=== PATIENT | female | born 2000 | race Caucasian/White ===

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

== ENCOUNTER 2020-01-02 15:29 | Outpatient (REF) | payer OTHER, SELFPAY ==
[2020-01-02 20:55] LABS: Absolute Basophil Count 0.05 10^3/uL (0.0-0.2); Absolute Eosinophil Count 0.28 10^3/uL (0.0-0.7); Absolute Lymphocyte Count 1.76 10^3/uL (1.2-3.4); Absolute Monocyte Count 0.43 10^3/uL (0.1-0.8); Absolute Neutrophil Count 2.63 10^3/uL (1.2-6.7); Eosinophils % 5.4; HCT 39.9 % (36.0-46.0); HGB 13.5 g/dL (11.2-15.7); Lymphocytes % 34.2; MCHC 33.8 % (32.0-36.0); MCV 91.5 fL (80-95); Monocytes % 8.3; Neutrophils % 51.1; Nucleated RBC 0 %; Platelet Count 217 10^3/uL (130-400); RBC 4.36 10^6/uL (3.93-5.22); RDW 11.7 % (11.7-14.6); RDW-SD 39.5 fL; WBC 5.15 10^3/uL (4.4-10.8)
[2020-01-02 20:58] LABS: HCG Qual (Serum) Negative
[2020-01-02 21:33] LABS: ALT 15 U/L (14-59); AST 13 U/L (15-37); Albumin 3.6 g/dL (3.4-5.0); Alkaline Phosphatase 59 U/L (46-116); BUN 6 mg/dL (7-18); Bilirubin, Total 0.5 mg/dL (0.2-1.0); CREATININE 0.96 mg/dL (0.55-1.02); Calcium 9.4 mg/dL (8.5-10.1); Chloride 108 mmol/L (98-107); Glucose 66 mg/dL (74-106); Magnesium 2.3 mg/dL (1.8-2.4); PHOSPHORUS 2.8 mg/dL (2.6-4.7); Potassium 4.4 mmol/L (3.5-5.1); Sodium 142 mmol/L (136-145); Total Protein 6.6 g/dL (6.4-8.2)
== END 2020-01-02 15:49 ==
LOC: NCHCN 15:29
PROVIDERS: PCP Family Medicine; Referring Provider Nurse Practitioner Family; Visit Provider Nurse Practitioner Psychiatric/Mental Health
DX: F50.89 Other specified eating disorder (principal)
CPT/HCPCS: 80053; 83735; 84100; 84703; 85025

== ENCOUNTER 2020-01-13 13:30 | Outpatient (REF) | payer OTHER, SELFPAY ==
[2020-01-13 21:31] LABS: Lithium 0.26 mmol/L (0.60-1.20)
== END 2020-01-13 13:50 ==
LOC: NCHCN 13:30
PROVIDERS: PCP Family Medicine; Visit Provider Nurse Practitioner Family
DX: Z51.81 Encounter for therapeutic drug level monitoring (principal); F31.81 Bipolar II disorder
CPT/HCPCS: 80178

== ENCOUNTER 2020-04-10 12:19 | Outpatient (REF) | payer OTHER, SELFPAY ==
[2020-04-10 22:12] LABS: Lithium 0.91 mmol/L (0.60-1.20)
== END 2020-04-10 12:39 ==
LOC: NCHCN 12:19
PROVIDERS: PCP Nurse Practitioner Family; Visit Provider Nurse Practitioner Family
DX: F31.81 Bipolar II disorder (principal); F50.89 Other specified eating disorder; Z79.899 Other long term (current) drug therapy; Z51.81 Encounter for therapeutic drug level monitoring
CPT/HCPCS: 80178

== ENCOUNTER 2020-09-06 15:05 | Outpatient (REF) | payer OTHER, SELFPAY ==
[2020-09-06 16:18] LABS: HCT 45.3 % (36.0-46.0); MCH 29.1 pg (27.0-33.0); MCHC 33.1 % (32.0-36.0); MPV 11.7 fL (8.0-11.0); Platelet Count 201 10^3/uL (130-400); RBC 5.15 10^6/uL (3.93-5.22); RDW-SD 38.6 fL; WBC 6.23 10^3/uL (4.4-10.8)
[2020-09-06 16:19] LABS: INR 1.1 (0.9-1.1); Prothrombin Time 10.9 sec (9.3-11.0)
[2020-09-06 16:33] LABS: Anion Gap 9.5 mmol/L (3-11); BUN 11 mg/dL (7-18); CO2 26.5 mmol/L (21.0-32.0); CREATININE 0.8 mg/dL (0.55-1.02); Calcium 9.6 mg/dL (8.5-10.1); Chloride 106 mmol/L (98-107); Glucose 82 mg/dL (74-106); Potassium 4.6 mmol/L (3.5-5.1); Sodium 142 mmol/L (136-145)
== END 2020-09-06 15:06 | disposition home or self-care (01) ==
LOC: NCHCN 15:05
PROVIDERS: PCP Nurse Practitioner Family; Visit Provider Nurse Practitioner Family
DX: Z51.81 Encounter for therapeutic drug level monitoring (principal); F10.11 Alcohol abuse, in remission; R51.9 Headache, unspecified; F50.9 Eating disorder, unspecified
CPT/HCPCS: 80048; 85027; 84443; 85610

== ENCOUNTER 2021-10-01 14:56 | Outpatient (REF) | payer OTHER, SELFPAY ==
--- NOTE | 2021-10-01 13:30 | PAPFT_PTH ---
PATIENT: Pavithra Whitmore LOC: [facility] U#:[id number] AGE/SX: 21/F ROOM: RE10/01/[address]: Lucie Heck NP : 2000 BED: DIS: 10/01/2021 SPEC #: [id number] RECD: 10/01/21 18:42 STATUS: NOELLE MARISCAL #: [id number] KLEBER: 10/01/21 13:[address]: Lucie Heck NP DEPT: [facility] Cytology RECD BY: Armida Stern ENTERED: 10/01/21 18:42 SP TYPE: PAPFT OTHR DR: Carolina Smalls Tissues: 1 - CX/ENDOCX FOR PAP SMEARS Procedures: PAP THIN PREP/[facility] Screening Comments: [id number]
== END 2021-10-01 14:57 | disposition home or self-care (01) ==
LOC: LBN 14:56
PROVIDERS: PCP Nurse Practitioner Family; Visit Provider Nurse Practitioner Women's Health
DX: Z12.4 Encounter for screening for malignant neoplasm of cervix (principal)
CPT/HCPCS: 88142

== ENCOUNTER 2022-01-10 15:12 | Outpatient (REF) | payer OTHER, SELFPAY ==
[2022-01-10 13:56] LABS: Abs Immature Grans 0.03 10^3/uL (0.0-0.06); Absolute Basophil Count 0.02 10^3/uL (0.0-0.2); Absolute Eosinophil Count 0.36 10^3/uL (0.0-0.7); Absolute Lymphocyte Count 1.95 10^3/uL (1.2-3.4); Absolute Monocyte Count 0.65 10^3/uL (0.1-0.8); Absolute Neutrophil Count 4.21 10^3/uL (1.2-6.7); Basophils % 0.3; HCT 41.6 % (36.0-46.0); HGB 14.8 g/dL (11.2-15.7); Immature Grans % 0.4; MCH 30.3 pg (27.0-33.0); MCHC 35.6 % (32.0-36.0); MCV 85 fL (80-95); MPV 10.8 fL (8.0-11.0); Neutrophils % 58.3; Platelet Count 243 10^3/uL (130-400); RBC 4.88 10^6/uL (3.93-5.22); RDW 11.4 % (11.7-14.6); WBC 7.22 10^3/uL (4.4-10.8)
[2022-01-10 14:10] LABS: ALT 67 U/L (14-59); AST 41 U/L (15-37); Albumin 3.6 g/dL (3.4-5.0); Alkaline Phosphatase 68 U/L (46-116); Anion Gap 5.8 mmol/L (3-11); BUN 12 mg/dL (7-18); Bilirubin, Total 0.3 mg/dL (0.2-1.0); CO2 26.2 mmol/L (21.0-32.0); CREATININE 0.9 mg/dL (0.55-1.02); Calcium 8.9 mg/dL (8.5-10.1); Chloride 106 mmol/L (98-107); Glucose 89 mg/dL (74-106); Lipase 70 U/L (73-393); Potassium 4.5 mmol/L (3.5-5.1); Sodium 138 mmol/L (136-145); Total Protein 6.8 g/dL (6.4-8.2)
== END 2022-01-10 15:13 | disposition home or self-care (01) ==
LOC: LBN 15:12
PROVIDERS: PCP Nurse Practitioner Family; Visit Provider Nurse Practitioner Family
DX: R10.9 Unspecified abdominal pain (principal)
CPT/HCPCS: 80053; 83690; 85025

== ENCOUNTER → 2022-11-27 01:42 | Outpatient (CLI) | payer OTHER, SELFPAY ==
--- NOTE | 2022-11-27 11:15 | DI.RAD_ITS ---
Exam(s) XR LUMBAR SPINE COMPLETE EXAM: XR LUMBAR SPINE COMPLETE CLINICAL HISTORY: chronic low back pain,M54.50. TECHNIQUE: 2D digital imaging was performed. Five views. COMPARISON: No exams were available for comparison FINDINGS: BONES: No fracture or destructive lesion. Vertebral body heights are maintained. No facet hypertroph y identified. No spondylolysis. DISKS: Intervertebral disc spaces are maintained. ALIGNMENT: Lumbar spinal alignment is within normal limits. No spondylolisthesis. SOFT TISSUE: Normal. IMPRESSION: Unremarkable radiographs of the lumbar spine. DATA REPOSITORY: RADIATION DOSE DELIVERED:
== END ==
PROVIDERS: PCP Nurse Practitioner Family; Visit Provider Nurse Practitioner Family
DX: M54.50 Low back pain, unspecified (principal)
CPT/HCPCS: 72110

== ENCOUNTER 2023-03-05 14:21 | Outpatient (REF) | payer OTHER, SELFPAY | END 2023-03-05 14:22 | disposition home or self-care (01) | LOC: LBN 14:21 | PROVIDERS: PCP Nurse Practitioner Family; Visit Provider Nurse Practitioner Family | DX: J06.0 Acute laryngopharyngitis (principal) | CPT/HCPCS: 87070 ==

== ENCOUNTER 2024-05-17 03:20 | Outpatient (CLI) | payer OTHER, SELFPAY ==
[2024-05-17] MEDS: Albuterol HFA 18 GM 200 PUFF INH IH (11:39)
[2024-05-17] MEDS: Methacholine 100 MG VIAL IH (11:39)
[2024-05-17] MEDS: Inhaler, Assist Device 1 EACH MC (11:39)
--- NOTE | 2024-05-18 20:56 | W.PFT ---
Date of service: 05/17/24 Time of Service: 09:54 Pulmonary Function Test Result Indications: Wheeze Interpretation Spirometry: There is no baseline airflow limitation. There was a 25% decrease in FEV1 with administration of 1 mg/mL methacholine. Lung Volumes: Normal lung volumes Diffusion Capacity: Normal diffusion Airway Pressure: Normal airways resistance Impression Normal baseline lung function with a positive methacholine challenge. Clinical Correlation therefore is recommended.
== END 2024-05-17 03:21 | disposition home or self-care (01) ==
LOC: RT 03:20
PROVIDERS: PCP Nurse Practitioner Family; Visit Provider Student in an Organized Health Care Education/Training Program
DX: R06.2 Wheezing (principal)
CPT/HCPCS: 94060; 94070; 94726; 94729; J7674